=== PATIENT | male | born 1985 ===

== ENCOUNTER 2017-03-01 22:46 | Emergency (ER) | payer BC ==
[2017-03-01 22:58] VITALS: BP 152/102; PULSE 110; RESP 22; TEMP 98.8; O2SAT 98
[2017-03-01] MEDS ORDERED: Albuterol-Ipratrop 3 mg / 0.5 (3 ml) UD ONE (23:10)
[2017-03-01] MEDS ORDERED: Albuterol-Ipratrop 3 mg / 0.5 (3 ml) UD IH STA ×3 (23:11→23:12)
--- NOTE | 2017-03-02 10:10 | RAD ---
HISTORY: cough, sob COMPARISON: No prior. TECHNIQUE: Chest PA and lateral FINDINGS: LUNGS: No active pulmonary disease. PLEURA: No significant pleural effusion identified. No pneumothorax apparent. CARDIOVASCULAR: Normal. OSSEOUS STRUCTURES: No significant abnormalities. VISUALIZED UPPER ABDOMEN: Normal. OTHER FINDINGS: None. IMPRESSION: No active disease.
--- NOTE | 2017-03-02 15:05 | CARD ---
APPROVED REPORT EKG Measurement Heart [id number] OR [id number] [id number] <Conclusion> Sinus tachycardia Otherwise normal ECG
--- NOTE | 2017-03-02 16:55 | ED PDOC ---
HPI: CCC, URI, Sore Throat Time Seen by Provider: 03/01/17 23:00 Chief Complaint (Nursing): Respiratory Distress Chief Complaint (Provider): cough, sob History Per: Patient History/Exam Limitations: no limitations Onset/Duration Of Symptoms: Days (2 weeks) Current Symptoms Are (Timing): Still Present Additional History Per: Patient Additional Complaint(s): 31 y/o male presents with cough x 2 weeks. Associated nasal congestion, shortness of breath, wheezing. Denies fever, headache, chest pain, palpitations , recent travel, sick contacts, tobacco use. Past Medical History Reviewed: Historical Data, Nursing Documentation, Vital Signs Vital Signs: Last Vital Signs Temp 98.8 F 03/01/17 22:55 Pulse 110 H 03/01/17 22:55 Resp 22 03/01/17 22:55 BP 152/102 H 03/01/17 22:55 Pulse Ox 98 03/01/17 22:55 - Medical History PMH: No Chronic Diseases - Surgical History Surgical History: No Surg Hx - Family History Family History: States: Unknown Family Hx - Living Arrangements Living Arrangements: With Family - Immunization History Hx Tetanus Toxoid Vaccination: No - Home Medications Home Medications: Ambulatory Orders Medication Instructions Recorded Albuterol HFA [Ventolin HFA 90 1 puff IH Q4 PRN #1 inh 03/02/17 mcg/actuation (8 g)] Azithromycin [Zithromax] 250 mg PO DAILY #1 packet 03/02/17 Fluticasone Nasal [Flonase] 1 actuation NS BID #1 bottle 03/02/17 Prednisone [Deltasone] 60 mg PO DAILY #12 tablet 03/02/17 - Allergies Allergies/Adverse Reactions: Allergies Allergy/AdvReac Type Severity Reaction Status Date / Time No Known Allergies Allergy Verified 03/01/17 23:11 Review of Systems ROS Statement: Except As Marked, All Systems Reviewed And Found Negative Respiratory: Positive for: Cough, Shortness of Breath, Sputum, Wheezing Physical Exam - Reviewed Nursing Documentation Reviewed: Yes Vital Signs Reviewed: Yes - Physical Exam Appears: Positive for: Well, Non-toxic, No Acute Distress Head Exam: Positive for: ATRAUMATIC, NORMAL INSPECTION, NORMOCEPHALIC Skin: Positive for: Normal Color Eye Exam: Positive for: Normal appearance ENT: Positive for: Nasal Congestion Cardiovascular/Chest: Positive for: Regular Rate, Rhythm Respiratory: Negative for: Wheezing (diffuse, expiratory) Gastrointestinal/Abdominal: Positive for: Normal Exam Back: Positive for: Normal Inspection Extremity: Positive for: Normal ROM Neurologic/Psych: Positive for: Alert, Oriented - ECG ECG: Positive for: Viewed By Me (reviewed by ED attending) ECG Rhythm: Positive for: Sinus Tachycardia (109bpm) O2 Sat by Pulse Oximetry: 98 - Radiology X-Ray: Viewed By Me X-Ray Interpretation: No Acute Disease - Progress ED Course And Treament: solumedrol IM, duonebs, chest xray, ekg On re-eval, patient states he is feeling better. Wheezing improved. Patient educated on findings, discharged with rx Zpak, Albuterol HFA, Prednsione , Flonase. Advised follow up PMD 2-3 days. Return to ED for worsening/concerning symptoms. Disposition - Clinical Impression Clinical Impression: Bronchitis - Patient ED Disposition Is Patient to be Admitted: No Counseled Patient/Family Regarding: Studies Performed, Diagnosis, Need For Followup, Rx Given - Disposition Referrals: Nikunj Charlton MD [Staff Provider] - Disposition: Routine/Home Disposition Time: 00:42 Condition: IMPROVED Prescriptions: Albuterol HFA [Ventolin HFA 90 mcg/actuation (8 g)] 1 puff IH Q4 PRN #1 inh PRN Reason: Wheezing Azithromycin [Zithromax] 250 mg PO DAILY #1 packet Fluticasone Nasal [Flonase] 1 actuation NS BID #1 bottle Prednisone [Deltasone] 60 mg PO DAILY #12 tablet Instructions: Acute Bronchitis (ED) Print Language: PERSIAN
== END 2017-03-02 01:45 | disposition home or self-care (01) ==
LOC: H.ER 22:46
DX: J40 Bronchitis, not specified as acute or chronic (principal)
CPT/HCPCS: 71020; 93005; 94640; 96372; 99282; J2930